=== PATIENT | female | born 1965 | race Caucasian/White ===

== ENCOUNTER → 2016-11-13 | Outpatient (CLI) | payer BC ==
--- NOTE | 2016-11-16 10:34 | DI ---
RIGHT SHOULDER, 11/13/2016 10:07 AM: Clinical History: Right shoulder pain. Previous Exam: 12/21/2014. 4 views are submitted. Since the previous exam, the patient has undergone resection of the lateral he ad of the clavicle. There are 2 lucencies in the humeral head probably representing location of place ment of anchors for a rotator cuff repair. These lucencies are approximately 1 cm in diameter. The vi sualized portions of the right apex and right lung de luna are normal. There are multiple old right ri b fractures laterally. Readin. Status post resection of the lateral head of the clavicle and presumed rotator cuff repair with p lacement of anchors in the humeral head. 2. The glenohumeral joint is normal.
== END ==
LOC: ORTHO 10:22
PROVIDERS: ATTEND Orthopaedic Surgery
DX: M25.511 Pain in right shoulder (principal); Z98.890 Other specified postprocedural states; F17.210 Nicotine dependence, cigarettes, uncomplicated
CPT/HCPCS: 73030

== ENCOUNTER → 2016-11-18 | Outpatient (CLI) | payer BC ==
--- NOTE | 2016-11-18 19:58 | DI ---
MRI RIGHT SHOULDER SCAN, 11/18/2016 9:59 AM: Clinical History: Right shoulder pain. Previous Exam: 07/30/2015. Technique: Axial, coronal, and sagittal fat saturated PD; axial gradient FE; coronal fat saturatedT2 weighted; sagittal T2 weighted. There is no soft tissue edema. The patient is status post resection of the lateral head of the clavic le. There is a type I acromion. There is a large amount of fluid in the subacromion bursa consistent with bursitis. In addition, there is low signal intensity within the bursa suggesting synovial prolif eration. The patient is status post tenodesis of the tendon of the long head of the biceps muscle and repair of the supraspinatus and conjoined tendons. However, there is increased signal intensity in t he central portion of the conjoined tendon consistent with an interstitial tear that would not be vis ible at arthroscopy. This extends from the attachment to the humeral head medially to involve the dis mckenna and the middle thirds of this tendon. The infraspinatus, teres minor and subscapularis tendons ar e normal. The glenoid labrum is otherwise normal. There is no muscular atrophy. The articular surface s of the glenohumeral joint are intact. Readin. Status post previous surgery with resection of the lateral head of the clavicle and repair of the supraspinatus and conjoined tendons and with tenodesis of the tendon of the long head of the biceps muscle. An interstitial tear is present in the conjoined tendon extending from the attachment to the humeral head medially through the midportion of this tendon. This tear would not be visible at arthro scopy. There is a large amount of fluid in the subacromion bursa indicating bursitis, and there also are hypointensities present within the bursal fluid suggesting synovial proliferation. 2. There is a type I acromion. The subscapularis and teres minor tendons are normal. The glenoid lab rum is otherwise normal.
== END ==
LOC: MRI 09:55
PROVIDERS: ATTEND Orthopaedic Surgery
DX: M25.511 Pain in right shoulder (principal); M75.51 Bursitis of right shoulder
CPT/HCPCS: 73221

== ENCOUNTER → 2016-11-30 | Outpatient (CLI) | payer BC ==
[2016-11-30 17:00] LABS: BASOPHILS # (AUTO) 0.05 10*3/UL; BASOPHILS % (AUTO) 0.6 % (0-1); EOSINOPHILS % (AUTO) 1.8 % (0-8); HEMATOCRIT 42.6 % (37.0-47.0); HEMOGLOBIN 13.8 g/dL (12.0-16.0); IMM GRAN % (AUTO) 0.1 % (0-5); IMM GRAN# (AUTO) 0.01 10*3/UL; LYMPHOCYTES # (AUTO) 2.95 10*3/uL; LYMPHOCYTES % (AUTO) 37.9 % (10-50); MEAN CORPUSCULAR HEMOGLOBIN 31.3 PG (27-31); MEAN CORPUSCULAR HGB CONC 32.4 g/dL (33-37); MEAN PLATELET VOLUME 10.4 FL (7.4-12.2); MONOCYTES # (AUTO) 0.62 10*3/UL (0.3-0.8); NEUTROPHILS # (AUTO) 4.02 10*3/UL; NEUTROPHILS % (AUTO) 51.6 % (50-80); RDW COEFFICIENT OF VARIATION 13.2 % (11.5-14.5); RED BLOOD COUNT 4.41 10^6/uL (4.20-5.40); WHITE BLOOD COUNT 7.79 10^3/uL (4.8-10.8)
[2016-11-30 17:05] LABS: PLATELET MORPHOLOGY COMMENT NORMAL MORPHOLOGY (NORM)
[2016-11-30 17:43] LABS: ERYTHROCYTE SEDIMENTATION RATE 2 MM/HR (0-20)
--- NOTE | 2016-11-30 22:02 | EKG ---
[address] [address] Measurements Intervals Jadwin Rate: 75 P: 79 OR: 150 QRS: 83 QRSD: 98 T: 81 QT: 383 QTc: 412 Interpretive Statements SINUS RHYTHM No previous ECG available for comparison Electronically Signed On 12-01-16 07:48:54 MDT by Adin Byrd [email or web address]
== END ==
LOC: EKG 16:10
PROVIDERS: ATTEND Orthopaedic Surgery
DX: Z01.812 Encounter for preprocedural laboratory examination (principal); Z01.810 Encounter for preprocedural cardiovascular examination; M19.019 Primary osteoarthritis, unspecified shoulder
CPT/HCPCS: 36415; 85025; 85652; 86140; 87641; 93005; 93010

== ENCOUNTER 2016-12-29 05:45 | Day surgery (SDC) | payer BC ==
[2016-12-29] MEDS ORDERED: LIDOCAINE W/ SODIUM BICARB 0.5 ML SYR ONE (05:59)
[2016-12-29] MEDS ORDERED: ceFAZolin Inj 2gm (Premix) 50 ML IV ONE (05:59)
[2016-12-29] MEDS ORDERED: Lactated Ringers 1,000 ML PRIMARY IV ONE ×2 (05:59→08:06)
[2016-12-29 06:15] LABS: URINE SPECIFIC GRAVITY - MAN 1.016
[2016-12-29] MEDS ORDERED: LIDOCAINE MPF 2% - 5 ML (20 MG/1 ML) ONE (06:55)
[2016-12-29] MEDS ORDERED: fentaNYL Inj 250 MCG/5 ML VIAL ONE (06:56)
[2016-12-29] MEDS ORDERED: MIDAZOLAM 5 MG/1 ML ONE (06:56)
[2016-12-29] MEDS ORDERED: Ropivacaine 0.2% VIAL 20 ML ONE (06:57)
[2016-12-29] MEDS ORDERED: EPINEPHrine Inj (1:1,000) 30mg/30ml vial ONE (06:57)
[2016-12-29] MEDS ORDERED: DEXAMETHASONE SOD PHOSPHATE 4 MG/1 ML VIAL ONE (07:04)
[2016-12-29] MEDS ORDERED: BUPivacaine Inj 0.5% PF (5mg/ml) 30ml vial ONE (07:04)
[2016-12-29] MEDS ORDERED: LIDOCAINE 2%/ EPI 1:200,000 - 20 ML VIAL ONE (07:04)
--- NOTE | 2016-12-29 08:25 | CRNA.PROCE ---
Nerve Block Documentation - - Type of Nerve Block Used: Right Interscalene Block Position for Nerve Block: Supine Moniters Used During Block: EKG, SPO2, NIBP Oxygen Sumpplented: Yes Sedation Used - Enter Amount in Comment Field: Midazolam (mg): Yes (4), Fentanyl (mcg): Yes (100) Skin Prep Used: ChloroPrep Draped: No Technique: Nerve Stimulator Nerve Block Needle Used: 40 mm ProBlk II Stimulation Hz: 2 Stimulation Staring mA: 1.2 Stimulation Ending mA: 0.40 Local Anesthetic - Enter Amt in Comment Field: 0.5 % Bupivacaine Plain (mL): Yes (20ml), 2 % Xylocaine with Epinephrine 1:200,000 (mL): Yes (20ml) Additives to Nerve Blocks: Dexamethasone (mL): Yes (8mg(2ml))
[2016-12-29] MEDS ORDERED: IBUPROFEN 400 MG TABLET PO PRN (10:59)
[2016-12-29] MEDS ORDERED: MORPHINE SULFATE 2 MG/1 ML IVP PRN (10:59)
[2016-12-29] MEDS ORDERED: diphenhydrAMINE 25 MG CAPSULE PO PRN (10:59)
[2016-12-29] MEDS ORDERED: ONDANSETRON 4 MG/2 ML VIAL IVP PRN (10:59)
[2016-12-29] MEDS ORDERED: BISACODYL 10 MG SUPPOSITORY RECTAL PRN (10:59)
[2016-12-29] MEDS ORDERED: CALCIUM CARBONATE 500 MG (TUMS) CHEWABLE TABLET PO PRN (10:59)
[2016-12-29] MEDS ORDERED: MAG HYDROX/AL HYDROX/SIMETH 30 ML SUSP PO PRN (10:59)
[2016-12-29] MEDS ORDERED: Ondansetron ODT Tab 8 MG TAB PO PRN (10:59)
[2016-12-29] MEDS ORDERED: ACETAMINOPHEN 325 MG TABLET PO PRN (10:59)
[2016-12-29] MEDS ORDERED: BISACODYL 5 MG TABLET PO PRN (10:59)
[2016-12-29] MEDS ORDERED: Prochlorperazine Tab 10 MG TAB PO PRN (10:59)
[2016-12-29] MEDS ORDERED: HYDROcodone-APAP 7.5 MG-325 MG TABLET PO PRN (10:59)
[2016-12-29] MEDS ORDERED: NORMAL SALINE 10 ML SYRINGE FLUSH IVP PRN (10:59)
[2016-12-29] MEDS ORDERED: Lactated Ringers 1,000 ML PRIMARY IV SCH (11:00)
[2016-12-29 11:49] VITALS: TEMP 97.4
[2016-12-29 12:06] VITALS: RESP 14
--- NOTE | 2016-12-30 15:18 | OPS SHOULD ---
Diagnosis : Right RTC Referral Reason: Instruction in Activities of Daily Living S: The patient reports she is not in a lot of pain; she states her arm is completely numb. The patient's was present during today's session. This is the patient's second surgery on this shoulder in less than two years. It was classified as a large supraspinatus and infraspinatus tear. O: The patient was instructed in activities of daily living including dressing and bathing, as well as shoulder do's and don'ts. The patient and her were instructed on how to don and doff the brace. The patient was able to dress upper extremities with max assist but she states she had shirts adapted for her surgery. A: The patient is going to need assistance for a while. Her was present and was instructed in the shoulder do's and don'ts and activities of daily living. P: No further therapy is indicated at this time. The patient will begin outpatient physical therapy. JA
== END 2016-12-29 13:02 | disposition home or self-care (01) ==
LOC: SDSC 05:45
PROVIDERS: ATTEND Orthopaedic Surgery
DX: M75.41 Impingement syndrome of right shoulder (principal); M75.101 Unspecified rotator cuff tear or rupture of right shoulder, not specified as traumatic; M65.811 Other synovitis and tenosynovitis, right shoulder
CPT/HCPCS: 29823; 29827; 84703; 97535; J0171; J0690; J2704; J2795; J3010; J1100; J2001; J2250; J3490; J7120

== ENCOUNTER → 2017-01-12 | Outpatient (CLI) | payer BC | LOC: MOB LAB 16:20 | PROVIDERS: ATTEND Student in an Organized Health Care Education/Training Program | DX: N89.8 Other specified noninflammatory disorders of vagina (principal) | CPT/HCPCS: 87480; 87510; 87660 ==